=== PATIENT | male | born 1955 | race Caucasian/White ===

== ENCOUNTER → 2023-01-14 15:58 | Outpatient (CLI) | payer OTHER, SELFPAY ==
[2023-01-14 16:03] LABS: Basophils # 0.1 K/mm3 (0-0.2); Basophils % 1.2 % (0.1-2.0); Eosinophils # 0.1 K/mm3 (0.0-0.4); Eosinophils % 1.2 % (0.1-12.0); Hematocrit 45.8 % (42.0-52.0); Hemoglobin 14.8 g/dL (14.1-18.0); Lymphocytes # 2.3 K/mm3 (0.7-4.5); Lymphocytes % 25.2 % (10-50); Mean Corpuscular HGB Conc 32.2 g/dL (31.8-35.4); Mean Corpuscular Hemoglobin 29.1 pg (27.0-31.2); Mean Corpuscular Volume 90.3 fl (80-94); Mean Platelet Volume 8.7 fl (7.4-10.4); Monocytes # 0.6 K/mm3 (0.1-1.0); Monocytes % 6.3 % (1.7-9.3); Neutrophils # 5.9 K/mm3 (1.8-7.8); Neutrophils % 66.1 % (37.0-80.0); Platelet Count 256 K/mm3 (142-424); Red Blood Count 5.07 M/mm3 (4.60-6.20); Red Cell Distribution Width 14.1 % (11.5-17.5); White Blood Count 8.9 K/mm3 (4.8-10.8)
[2023-01-14 16:07] LABS: Alanine Aminotransferase 14 U/L (12-78); Albumin Level 4.7 g/dl (3.5-5.0); Albumin/Globulin Ratio 1.8 (1.1-1.8); Alkaline Phosphatase 58 U/L (38-126); Aspartate Amino Transferase 27 U/L (17-59); Bilirubin,Total 0.4 mg/dl (0.2-1.3); Blood Urea Nitrogen 15 mg/dl (9-20); Calcium 9.1 mg/dl (8.4-10.2); Carbon Dioxide 27 mmol/L (22.0-30.0); Chloride 109 mmol/L (98-107); Estimated Glomerular Filt Rate 97 ml/min (>60); GFR (African American) 117 ML/MIN (>60); Globulin 2.6 g/dL (1.3-3.2); Glucose 104 mg/dl (74-100); Sodium 140 mmol/L (136-145); Total Protein,Serum 7.3 g/dl (6.3-8.2)
[2023-01-14 16:40] LABS: Prostate Specific Ag Screen 0.9 ng/ml (0.0-4.0); Thyroid Stimulating Hormone 3.47 uIU/mL (0.465-4.68)
== END ==
PROVIDERS: PCP Family Medicine; Visit Provider Family Medicine
DX: R53.83 Other fatigue (principal); I10 Essential (primary) hypertension; Z12.5 Encounter for screening for malignant neoplasm of prostate
CPT/HCPCS: 80053; 84443; 85025; G0103

== ENCOUNTER 2023-02-06 07:45 | Day surgery (SDC) | payer MEDICARE, OTHER, SELFPAY ==
[2023-01-16 13:09] VITALS: BMI 18.7
--- NOTE | 2023-02-04 12:56 | SUR.PREOP ---
I returned patients phone call he had questions reguarding his ASA 81mg. 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 I informed Mr lozoya that he did not have to stop taking any of his medications. He should continue them. Asa 81mg is fine to continue. I'm not sure why he thought he had to stop ASA.
[2023-02-06] VITALS (7 sets, daily range): BP systolic 93–149; BP diastolic 49–71; PULSE 61–84; RESP 16–18; TEMP 36.5–36.8; O2SAT 95–100
--- NOTE | 2023-02-06 09:13 | EXP.ANES.CKL ---
[facility] Disclaimer: The information contained in this section may have been updated after the patient was seen, as this information can be updated by other users. Medical History Hyperlipidemia Surgical History History of heart bypass surgery History of tonsillectomy No significant past surgical history Family History Other Alcoholism Cancer Coronary artery disease FHx: mental illness Heart attack Hyperlipidemia Hypertension Substance abuse Social History Smoking Status: Light tobacco smoker tobacco type: pipe years: 15 alcohol intake: former year quit: 34 substance use type: former substance user current occupational status: disabled Travel in the last 8 weeks: None household members: none housing: house lives independently: Yes marital status: single education level: college caffeine: Yes special sangeetha needs: No agree to transfusion: No do you feel safe at home: Yes victim of physical abuse: No victim of emotional abuse: No victim of sexual abuse: No would you like helpful sources: No [facility] Anesthesia Checklist Patient Identification Patient Identification: Arm Band and Verbal (Name & ) Structural Data Admitted From: Home Planned Operative Procedure/s: EGD/Colonoscopy Consent for Planned Operative Procedure(s) Verified: Yes Verified Documents: Surgical Consent NPO Status Verified Time NPO: 03:00 Airway Assessment C-Spine Mobility Assessed: Yes TMJ Mobility Assessed: Yes Dentition: Edentulous Neurological Assessment Level of Consciousness: Awake, Alert and Appropriate Anesthesia Plan Anesthesia Risk discussed: Yes ASA Class: III Anesthesia Type: MAC
--- NOTE | 2023-02-06 09:24 | HMH.SCOPE ---
Procedure: Date: 02/06/23 Patient Date of :: 1955 Procedure Performed:: EGD & Biopsies Indications:: Weight loss, bloating Performing Provider:: Александр Peña MD Referring Provider:: Toney Gonzales Sedation:: Propofol Procedure:: The gastroscope was gently passed through the incisoral orifice into the oral cavity and under direct visualization the esophagus was intubated. The endoscope was passed down the esophagus, through the stomach, and into the duodenum. Color, texture, mucosa, and anatomy of the esophagus, stomach, and duodenum were carefully examined with the scope. Findings:: Oropharynx: normal Esophagus: normal EG Junction: intact at 40 cm Cardia: normal Fundus: normal Body: moderate gastritis, no obvious ulcers, biopsied Antrum: normal Duodenal bulb: Erosive duodenitis, biopsied Duodenum (second and third portion): normal Impression: Gastritis and erosive duodenitis Specimens:: Gastric and duodenal Recommendations:: Avoid NSAIDs & ASA products Complications:: None Estimated blood obtained (mL): 0
--- NOTE | 2023-02-06 09:27 | HMH.SCOPE ---
Procedure: Date: 02/06/23 Patient Date of :: 1955 Procedure Performed:: Screening colonoscopy Indications:: Family history of colon cancer (Mother) Performing Provider:: Александр Peña MD Referring Provider:: Toney Gonzales Sedation:: Propofol Procedure:: After placing the patient in the left lateral decubitus position, the colonoscopy was gently inserted into the rectum and under direct visualization advanced to the cecum which was identified by transillumination in the right lower quadrant, identification of the ileocecal valve, appendiceal orifice, and cecal strap. Color, texture, mucosa, and anatomy of the colon were carefully examined with the scope. Findings:: Anal canal: normal Rectum: normal Sigmoid colon: normal without polyps or inflammatory changes, few diverticuli Descending colon: normal without polyps or inflammatory changes Splenic flexure: normal Transverse colon: normal without polyps or inflammatory changes Hepatic flexure: normal Ascending colon: normal without polyps or inflammatory changes Cecum: normal Terminal ileum: not visualized Impression: Few sigmoid diverticulosis otherwise normal colonoscopy Recommendations:: Follow up exam in about FIVE years or so in view of family history Complications:: None Estimated blood obtained (mL): 0
== END 2023-02-06 10:14 | disposition home or self-care (01) ==
PROVIDERS: PCP Family Medicine; Visit Provider Internal Medicine Gastroenterology
PROC: 0DJ08ZZ Inspection of Upper Intestinal Tract, Via Natural or Artificial Opening Endoscopic (ICD-10-PCS; CPT 43235; principal; 2023-02-06 09:00)
DX: K29.80 Duodenitis without bleeding (principal); K29.70 Gastritis, unspecified, without bleeding; Z80.0 Family history of malignant neoplasm of digestive organs; Z72.0 Tobacco use; K57.30 Diverticulosis of large intestine without perforation or abscess without bleeding; R14.0 Abdominal distension (gaseous); R63.4 Abnormal weight loss; Z79.899 Other long term (current) drug therapy
CPT/HCPCS: 43239; 45378; 88305

== ENCOUNTER → 2023-03-14 14:58 | Outpatient (CLI) | payer MEDICARE, OTHER, SELFPAY ==
[2023-03-14 15:03] LABS: MANUAL DIFFERENTIAL MANUAL DIFFERENTIAL (MANUAL DIFF)
[2023-03-14 15:54] LABS: Basophils # 0.1 K/mm3 (0-0.2); Eosinophils # 0.1 K/mm3 (0.0-0.4); Eosinophils % 1.5 % (0.1-12.0); Hematocrit 45.4 % (42.0-52.0); Hemoglobin 14.5 g/dL (14.1-18.0); Lymphocytes # 2.5 K/mm3 (0.7-4.5); Lymphocytes % 31.4 % (10-50); Mean Corpuscular HGB Conc 31.9 g/dL (31.8-35.4); Mean Corpuscular Hemoglobin 28.4 pg (27.0-31.2); Mean Corpuscular Volume 88.9 fl (80-94); Mean Platelet Volume 8.2 fl (7.4-10.4); Monocytes # 0.5 K/mm3 (0.1-1.0); Monocytes % 5.8 % (1.7-9.3); Neutrophils # 4.8 K/mm3 (1.8-7.8); Neutrophils % 60.3 % (37.0-80.0); Platelet Count 214 K/mm3 (142-424); Red Cell Distribution Width 13.6 % (11.5-17.5)
[2023-03-14 16:03] LABS: Monoscreen (Rapid) Negative (Negative)
[2023-03-14 16:13] LABS: Alanine Aminotransferase 12 U/L (12-78); Albumin Level 4.3 g/dl (3.5-5.0); Albumin/Globulin Ratio 1.8 (1.1-1.8); Alkaline Phosphatase 49 U/L (38-126); Anion Gap 13.5 mEq/L (5-15); Aspartate Amino Transferase 25 U/L (17-59); Bilirubin,Total 0.6 mg/dl (0.2-1.3); Blood Urea Nitrogen 16 mg/dl (9-20); Calcium 9.3 mg/dl (8.4-10.2); Carbon Dioxide 27 mmol/L (22.0-30.0); Chloride 105 mmol/L (98-107); Chol/HDL Ratio 3.7 (1-3.5); Cholesterol 128 mg/dl (140-200); Estimated Glomerular Filt Rate 97 ml/min (>60); GFR (African American) 117 ML/MIN (>60); Globulin 2.4 g/dL (1.3-3.2); Glucose 96 mg/dl (74-100); HDL Cholesterol 35 mg/dl (40-60); Potassium 4.5 mmoL/L (3.5-5.1); Sodium 141 mmol/L (136-145); Total Protein,Serum 6.7 g/dl (6.3-8.2); Triglycerides 70 mg/dl (30-150); VLDL Cholesterol 14 mg/dL (0-40)
[2023-03-14 16:24] LABS: Direct LDL Cholesterol 81.75 mg/dL (100-129)
[2023-03-14 16:31] LABS: 25-OH Vitamin D, Total 15.6 ng/mL (30-100)
[2023-03-14 16:44] LABS: Thyroid Stimulating Hormone 2.47 uIU/mL (0.465-4.68)
[2023-03-14 17:03] LABS: Vitamin B12 366 pg/mL (239-931)
[2023-03-14 18:56] LABS: Lymphocytes % 30 % (10-50); Monocytes % 2 % (2-9); Neutrophils % 68 % (42-76); Total Cells Counted 100
[2023-03-14 18:57] LABS: Platelet Estimate Normal; RBC Morphology Normal
[2023-03-16 18:24] LABS: Testosterone,Total 563 ng/dL (264-916)
[2023-03-17 17:26] LABS: EBV Ab VCA, IgG >600.0 U/mL (0.0-17.9); EBV Ab VCA, IgM <36.0 U/mL (0.0-35.9); EBV Nuclear Antigen Ab, IgG 38.8 U/mL (0.0-17.9)
== END ==
PROVIDERS: PCP Family Medicine; Visit Provider Family Medicine
DX: E78.5 Hyperlipidemia, unspecified (principal); E55.9 Vitamin D deficiency, unspecified; Z79.899 Other long term (current) drug therapy; R10.9 Unspecified abdominal pain
CPT/HCPCS: 36415; 80053; 80061; 82306; 82607; 84403; 84443; 85007; 85014; 85018; 85048; 85049; 86318; 86664; 86665

== ENCOUNTER → 2023-04-03 10:07 | Outpatient (CLI) | payer MEDICARE, OTHER, SELFPAY ==
--- NOTE | 2023-04-03 10:08 | CT_ITS ---
FINAL REPORT CLINICAL HISTORY: lung cancer screening 1 pack per day x 16 years smoker FINDINGS: Axial images were obtained from the lung apex to the mid abdomen by computed tomography. Low-dose protocol was utilized. CTDl vol(mGy): 2.90 DLP (mGy-cm): 115.42 FINDINGS: There is no axillary adenopathy. There is no hilar or mediastinal adenopathy. The heart size is normal. There is no pericardial or pleural effusion. Limited images of the upper abdomen are unremarkable. Lung window images demonstrate a subpleural nodule within the left upper lobe measuring 6 mm in seen on image 61. There are 2 nodules along the mid left major fissure measuring 6 mm or less. These likely represent intra fissural lymph nodes. A 7 mm subpleural right mid lung nodule is seen on image 62. There is a 5 mm medial right upper lobe nodule on image 28. Moderate emphysema is noted. IMPRESSION: Scattered lung nodules are favored to represent granulomas. Lung RADS category 3. Recommend 6 month follow-up low-dose chest CT. Reviewed, Interpreted and Dictated by Fahad Ma MD Transcribed by Yessenia Lopes Authenticated and [facility]
--- NOTE | 2023-04-03 10:17 | CT_ITS ---
FINAL REPORT TECHNIQUE: Axial CT images of the abdomen were obtained without contrast. Coronal reformatted images were also obtained.This study was performed with techniques to keep radiation doses as low as reasonably achievable (ALARA). Individualized dose reduction techniques using automated exposure control or adjustment of mA and/or kV according to the patient''s size were employed. CLINICAL HISTORY: abdominal pain and weight loss COMPARISON: None FINDINGS: The lung bases are clear. The liver has an unremarkable appearance, without evidence of mass. The gallbladder appears normal without evidence of gallstones. There is no evidence of biliary ductal dilatation. The pancreas appears normal. The spleen size is within normal limits. There is no evidence of renal stone or hydronephrosis. There is no evidence of adenopathy. No abnormal fluid collection is seen. No localized inflammatory processes identified. Bowel is unremarkable. There is moderate calcified plaque in the aorta and iliac vessels. IMPRESSION: No acute findings, mass, or adenopathy. Reviewed, Interpreted and Dictated by Fahad Ma MD Transcribed by Hyacinth Smith Authenticated and . [facility]
== END ==
PROVIDERS: PCP Family Medicine; Visit Provider Family Medicine
DX: R10.9 Unspecified abdominal pain; R63.4 Abnormal weight loss; Z87.891 Personal history of nicotine dependence; Z12.2 Encounter for screening for malignant neoplasm of respiratory organs; Z68.1 Body mass index [BMI] 19.9 or less, adult
CPT/HCPCS: 71271; 74150

== ENCOUNTER 2024-05-26 11:16 | Outpatient (CLI) | payer MEDICARE, OTHER, SELFPAY ==
[2024-05-26 20:44] LABS: Alanine Aminotransferase 9 U/L (12-78); Albumin Level 4.3 g/dl (3.5-5.0); Albumin/Globulin Ratio 1.5 (1.1-1.8); Alkaline Phosphatase 61 U/L (38-126); Anion Gap 15.5 mEq/L (5-15); Aspartate Amino Transferase 23 U/L (17-59); Bilirubin,Total 0.5 mg/dl (0.2-1.3); Blood Urea Nitrogen 19 mg/dl (9-20); Calcium 9.5 mg/dl (8.4-10.2); Carbon Dioxide 27 mmol/L (22.0-30.0); Chloride 104 mmol/L (98-107); Chol/HDL Ratio 4.4 (1-3.5); Cholesterol 145 mg/dl (140-200); Estimated Glomerular Filt Rate 84 ml/min (>60); GFR (African American) 102 ML/MIN (>60); Globulin 2.8 g/dL (1.3-3.2); Glucose 101 mg/dl (74-100); HDL Cholesterol 33 mg/dl (40-60); Potassium 4.5 mmoL/L (3.5-5.1); Sodium 142 mmol/L (136-145); Total Protein,Serum 7.1 g/dl (6.3-8.2); Triglycerides 115 mg/dl (30-150); VLDL Cholesterol 23 mg/dL (0-40)
[2024-05-26 20:46] LABS: Basophils # 0.1 K/mm3 (0-0.2); Basophils % 1.1 % (0.1-2.0); Eosinophils # 0.2 K/mm3 (0.0-0.4); Eosinophils % 1.6 % (0.1-12.0); Hematocrit 44.9 % (42.0-52.0); Hemoglobin 14.7 g/dL (14.1-18.0); Lymphocytes # 1.8 K/mm3 (0.7-4.5); Lymphocytes % 17.6 % (10-50); Mean Corpuscular HGB Conc 32.7 g/dL (31.8-35.4); Mean Corpuscular Hemoglobin 29.5 pg (27.0-31.2); Mean Corpuscular Volume 90.3 fl (80-94); Mean Platelet Volume 9.8 fl (7.4-10.4); Monocytes # 0.6 K/mm3 (0.1-1.0); Neutrophils # 7.3 K/mm3 (1.8-7.8); Neutrophils % 73.8 % (37.0-80.0); Platelet Count 189 K/mm3 (142-424); Red Blood Count 4.97 M/mm3 (4.60-6.20); Red Cell Distribution Width 14.4 % (11.5-17.5)
[2024-05-26 20:55] LABS: Direct LDL Cholesterol 87.76 mg/dL (100-129)
[2024-05-26 21:15] LABS: Prostate Specific Ag Screen 1.1 ng/ml (0.0-4.0); Thyroid Stimulating Hormone 3.96 uIU/mL (0.465-4.68)
[2024-05-28 10:59] LABS: Testosterone,Total 600 ng/dL (264-916)
== END 2024-05-26 23:59 | disposition home or self-care (01) ==
LOC: LAB.DROPOF 05-27 11:16
PROVIDERS: PCP Family Medicine; Visit Provider Family Medicine
DX: E78.5 Hyperlipidemia, unspecified (principal); Z12.5 Encounter for screening for malignant neoplasm of prostate
CPT/HCPCS: 80050; 80053; 80061; 84403; 84443; 85025; G0103

== ENCOUNTER 2025-05-26 12:18 | Outpatient (CLI) | payer MEDICARE, OTHER, SELFPAY ==
[2025-05-26 18:49] LABS: Hematocrit 43.7 % (42.0-52.0); Hemoglobin 13.3 g/dL (14.1-18.0); Immature Granulocytes % 0.2 %; Mean Corpuscular HGB Conc 30.4 g/dL (31.8-35.4); Mean Corpuscular Hemoglobin 27.8 pg (27.0-31.2); Mean Corpuscular Volume 91.2 fl (80-94); Nucleated Red Blood Cells % 0 %; Platelet Count 183 K/mm3 (142-424); Red Blood Count 4.79 M/mm3 (4.60-6.20); Red Cell Distribution Width-SD 49.4 fL; White Blood Count 8.1 K/mm3 (4.8-10.8)
[2025-05-26 19:36] LABS: Alanine Aminotransferase 10 U/L (12-78); Albumin Level 4.1 g/dl (3.5-5.0); Albumin/Globulin Ratio 1.7 (1.1-1.8); Alkaline Phosphatase 68 U/L (38-126); Anion Gap 12.1 mEq/L (5-15); Aspartate Amino Transferase 22 U/L (17-59); Bilirubin,Total 0.4 mg/dl (0.2-1.3); Blood Urea Nitrogen 12 mg/dl (9-20); Calcium 9.0 mg/dl (8.4-10.2); Carbon Dioxide 27 mmol/L (22.0-30.0); Chloride 105 mmol/L (98-107); Cholesterol 143 mg/dl (140-200); Creatinine,Serum 0.70 mg/dl (0.66-1.25); Estimated Glomerular Filt Rate 112 ml/min (>60); GFR (African American) 136 ML/MIN (>60); Globulin 2.4 g/dL (1.3-3.2); Glucose 72 mg/dl (74-100); HDL Cholesterol 30 mg/dl (40-60); Potassium 4.1 mmoL/L (3.5-5.1); Sodium 140 mmol/L (136-145); Total Protein,Serum 6.5 g/dl (6.3-8.2); Triglycerides 98 mg/dl (30-150)
[2025-05-26 20:26] LABS: Hepatitis C Ab Qual. W/ RFX NEGATIVE (Negative)
--- OUTSIDE RECORDS SUMMARY | 2025-05-30 12:40 | XMS_ITS | Encounter Summary ---
Author Organization [employer] ([place], [place], [place], [place]) Address [address] [place] [address] Care Team Providers Care Payroll Representative Name Role Phone Unavailable Primary Care Provider Unavailabl e Encounter Details Date Type Department Care Team (Late st Contact Info) Description 08/07/2020 Transcribed Document [facility] [address] [place] [address] Provider, Sabra Lujan MD Social History Tobacco Use Types Packs/Day Years Used Date Smoking Tobacco: Never Assessed Sex and Gender Information Value Date Recorded Sex Assigned at Not on file Legal Sex Male 7:05 PM CDT Gender Identity Not on file Sexual Orientation Not on file documented as of this encounter Miscellaneous Notes * Cerner Conversion Note - [facility] Tai ProviderMD - 08/07/2020 8:55 AM EDT Pre Procedure Adult Entered On: 08/07/2020 8:01 EDT Performed On: 08/07/2020 7:55 EDT by FREIDA SONG RN Height and Weight, Clinical Dosing Height Source : Measured Height Entry Format : [place] Height, Feet : 6 ft(Converted to: 183 cm, 72 Inch) Height, Inches : 0 Inch(Converted to: 0 ft 0 Inch, 0.00 cm) Clinical Height : 182.88 cm Weight Source : Standing scale Weight Entry Format : [place] Clinical Dosing Weight : 71.36 kg Weight, Pounds : 157 lb Body Surface Area (BSA) : 1.92 m2 Body Mass Index : 21.3 kg/m2 [place] Body Weight : 77 kg FREIDA SONG RN - 08/07/2020 7:55 EDT Health Histories Smoking Status : Cigars or pipes daily within last 30 days Smokeless Tobacco Status : Never Desires Tobacco Cessation Medication : No Reason for No Tobacco Cessation Medication : Refuses FDA approved medications FREIDA SONG RN - 08/07/2020 7:55 EDT Social History (As Of: 08/07/2020 08:01:55 EDT) Infectious Disease History Has the patient ever been tested for COVID-19? : Yes, Patient stated results Negative Where was the COVID-19 Testing completed? : [facility] Where are the test results? : Paper Copy on chart Date of COVID-19 test known? : No Does patient have symptoms of COVID-19? : No COVID19 Screening : No Experiencing Infectious Disease Symptoms : No symptoms Physical contact outside [place] in the last 30 days : No Infectious Disease History : Influenza, Measles Tuberculosis Symptoms : None FREIDA SONG RN - 08/07/2020 7:55 EDT COVID19 PreProcedure Screening Is this an Emergent or Add on Procedure? : No Has patient been isolated since the test : No Exposed to COVID19 symptoms since test? : No FREIDA SONG RN - 08/07/2020 7:55 EDT Anesthesia/Transfusion History Family History of Anesthesia Reaction : No prior transfusion(s) Blood Transfusion Acceptable to Patient : Yes Transfusion History : No prior anesthesia Family History of Anesthesia Reaction : None FREIDA SONG RN - 08/07/2020 7:55 EDT Functional Assessment Living Situation : Home Patient Lives With : Alone Current Home Treatments : None FREIDA SONG RN - 08/07/2020 7:55 EDT [place] Suicide Severity Rating Scale (C-SSRS) CSSRS Past Month Wish to be : No CSSRS Past Month Suicidal Thoughts : No CSSRS Lifetime Suicide Behavior : No Suicide Severity Rating Score : 0 Suicide Severity Rating : No Additional Care Required at this time FREIDA SONG RN - 08/07/2020 7:55 EDT Psychosocial History Currently in Unsafe Situation : No FREIDA SONG RN - 08/07/2020 7:55 EDT Advance Directive Patient has Advance Directive *Q : No, patient refuses Advance Directive information FREIDA SONG RN - 08/07/2020 7:55 EDT General Info Want Family/Rep/Phys Notified of Admit : No Emergency Contact #1 : Jesus Emergency Contact #1 Phone Number : friend Emergency Contact #1 Relationship : [phone] Emergency Contact #2 : none Emergency Contact #2 Phone Number : none Emergency Contact #2 Relationship : none Primary Language : Vietnamese Communication Barrier : None Safety Net Maker Needed : No FREIDA SONG RN - 08/07/2020 7:55 EDT Sleep Apnea Risk Assmt Hx of Obstructive Sleep Apnea Diagnosis : No Snore Loudly : No Tired, Fatigued, or Sleepy During Day : No Observed Stopping Breathing During Sleep : No Have/Are Being Treated for Hypertension : No BMI Greater Than 35 kg/m2 : No Age over 50 Years Old : Yes Neck Circumference Greater Than 40 cm : No Gender Male : Yes STOP-BANG Sleep Apnea Risk Level Score : 2 FREIDA SONG RN - 08/07/2020 7:55 EDT Hector Scale Hector Sensory Perception : No impairment Hector Moisture : Rarely moist Hector Activity : Walks frequently Hector Mobility : No limitation Hector Nutrition : Adequate Hector Friction and Shear : No apparent problem Hector Score : 22 FREIDA SONG RN - 08/07/2020 7:55 EDT Fall Risk Scales ABCs Fall Injury Risk Identification : None SHARIF Hx Falls Immediate/Within 3 Months : No Sharif Secondary Diagnosis : No SHARIF Use of Ambulatory Aid : None SHARIF IV Therapy or IV Access : No Sharif Gait/Transferring : Normal, bedrest, immobile Sharif Mental Status : Oriented to own ability Sharif Fall Risk Score : 0 SHARIF Fall Scale Risk Level : 0-24 Low Risk [place] Fall Interventions : Adequate lighting, Assistive devices within reach, Bed in low position, Call device within reach, Fall prevention handout/education per facility policy, Hourly comfort/safety rounds, Non-slip footwear, Personal items within reach, Reinforced to call for assistance before getting out of bed, Room free of clutter/spills, Upper side-rails up, Wheels locked, Wires/Cords secured FREIDA SONG RN - 08/07/2020 7:55 EDT Valuables and Belongings Valuables and Belongings : Clothing Clothing : Common streetwear Clothing Disposition : Bedside FREIDA SONG RN - 08/07/2020 7:55 EDT documented in this encounter Plan of Treatment Not on file documented as of this encounter Visit Diagnoses Not on filedocumented in this encounter
--- OUTSIDE RECORDS SUMMARY | 2025-05-30 12:40 | XMS_ITS | Encounter Summary ---
Author Organization [employer] ([place], [place], [place], [place]) Address [address] [place] [address] Care Team Providers Care Pneumatic Tube Operator Name Role Phone Unavailable Primary Care Provider Unavailabl e Encounter Details Date Type Department Care Team (Late st Contact Info) Description 08/07/2020 Transcribed Document [facility] Radiology [address] [place] [address] Provider, Sabra Lujan MD Social History Tobacco Use Types Packs/Day Years Used Date Smoking Tobacco: Never Assessed Sex and Gender Information Value Date Recorded Sex Assigned at Not on file Legal Sex Male 7:05 PM CDT Gender Identity Not on file Sexual Orientation Not on file documented as of this encounter Miscellaneous Notes * Cerner Conversion Note - [facility] Tai ProviderMD - 08/07/2020 3:59 PM EDT Stroke/Warfarin Instructions Entered On: 08/07/2020 14:59 EDT Performed On: 08/07/2020 14:59 EDT by FREIDA SONG RN Stroke/Warfarin Instructions Stroke/TIA Discharge Ins : Open Warfarin Discharge Ins : N/A FREIDA SONG RN - 08/07/2020 14:59 EDT Stroke/TIA Discharge Instructions Individualized Stroke Risk Factors *Q : High cholesterol, Peripheral vascular disease, Smoking Stroke Education Handouts Given *Q : Yes FREIDA SONG RN - 08/07/2020 14:59 EDT Stroke Education Materials Given-Grid Activation of EMS *Q : Verbalizes understanding Follow-up Care After Discharge *Q : Verbalizes understanding Medications prescribed at DC *Q : Verbalizes understanding Risk Factors for Stroke *Q : Verbalizes understanding Warning S&S of Stroke *Q : Verbalizes understanding FREIDA SONG RN - 08/07/2020 14:59 EDT Stroke/TIA Signs/Symptoms to Report Immediately : Sudden onset difficulty speaking, Sudden onset difficulty understanding speech, Sudden onset change in vision, Sudden onset weakness particulary on one side of the body, Sudden onset numbness/tingling, Sudden severe headache, Sudden dizziness or trouble with gait, Call : EMS activation is crucial My LDL Level: : LDL Level No qualifying data available. FREIDA SONG RN - 08/07/2020 14:59 EDT documented in this encounter Plan of Treatment Not on file documented as of this encounter Visit Diagnoses Not on filedocumented in this encounter
--- OUTSIDE RECORDS SUMMARY | 2025-05-30 12:40 | XMS_ITS | Encounter Summary ---
Author Organization [employer] ([place], [place], [place], [place]) Address [address] [place] [address] Care Team Providers Care Inspector Assemblies And Installations Name Role Phone Unavailable Primary Care Provider Unavailabl e Encounter Details Date Type Department Care Team (Late st Contact Info) Description 08/07/2020 Transcribed Document [facility] [address] [place] [address] Provider, Sabra Lujan MD Social History Tobacco Use Types Packs/Day Years Used Date Smoking Tobacco: Never Assessed Sex and Gender Information Value Date Recorded Sex Assigned at Not on file Legal Sex Male 7:05 PM CDT Gender Identity Not on file Sexual Orientation Not on file documented as of this encounter Miscellaneous Notes * Cerner Conversion Note - [facility] Tai Bennett MD - 08/07/2020 2:35 PM EDT Patient Education Materials Follows: Valvuloplasty, Care After This sheet gives you information about how to care for yourself after your procedure. Your health care provider may also give you more specific instructions. If you have problems or questions, contact your health care provider. What can I expect after the procedure? After the procedure, it is common to have: EA tender lump and bruising in your groin. ESoreness. Follow these instructions at home: Incision care EFollow instructions from your health care provider about how to take care of your incision. Make sure you: ? Wash your hands with soap and water before you change your bandage (dressing). If soap and water are not available, use hand senior java architect. ? Change your dressing as told by your health care provider. ? Leave stitches (sutures), skin glue, or adhesive strips in place. These skin closures may need to stay in place for 2 weeks or longer. If adhesive strip edges start to loosen and curl up, you may trim the loose edges. Do not remove adhesive strips completely unless your health care provider tells you to do that. ECheck your incision area every day for signs of infection. Check for: ? More redness, swelling, or pain. ? More fluid or blood. ? Warmth. ? Pus or a bad smell. Robbie not apply powder or lotion to the area. Driving Robbie not drive until your health care provider approves. Robbie not drive or use heavy machinery while taking prescription pain medicine. Activity EReturn to your normal activities as told by your health care provider. Ask your health care provider what activities are safe for you. Robbie not lift anything that is heavier than 10 lb (4.5 kg) until your health care provider says it is safe. Lifestyle ELimit alcohol intake to no more than 1 drink a day for non women and 2 drinks a day for men. One drink equals 12 oz of beer, 5 oz of wine, or 1? oz of hard liquor. Robbie not use any products that contain nicotine or tobacco, such as cigarettes and e-cigarettes. If you need help quitting, ask your health care provider. General instructions ETake cxtn-hfr-rhqgwrt and prescription medicines only as told by your health care provider. Robbie not take baths, swim, or use a hot tub until your health care provider approves. ETo prevent or treat constipation while you are taking prescription pain medicine, your health care provider may recommend that you: ? Drink enough fluid to keep your urine clear or pale yellow. ? Take aiox-kdw-smesgwm or prescription medicines. ? Eat foods that are high in fiber, such as fresh fruits and vegetables, whole grains, and beans. ? Limit foods that are high in fat and processed sugars, such as fried and sweet foods. EFollow instructions from your health care provider about eating or drinking restrictions. EWear compression stockings as told by your health care provider. These stockings help to prevent blood clots and reduce swelling in your legs. EKeep all follow-up visits as told by your health care provider. This is important. Contact a health care provider if: EYou have a fever or chills. EYou have more redness, swelling, or pain around your incision. EYou have more fluid or blood coming from your incision. EYour incision feels warm to the touch. EYou have pus or a bad smell coming from your incision. EYou have nausea or you feel dizzy. EYou have swelling or pain in your leg. Get help right away if: EYou develop bleeding from your incision that does not stop. EYou have chest pain. EYou have difficulty breathing. This information is not intended to replace advice given to you by your health care provider. Make sure you discuss any questions you have with your health care provider. Document Released: 03/26/2016 Document Revised: 10/23/2018 Document Reviewed: 10/07/2017 [employer] Patient Education ? 2020 [employer]. Groin Site Care Refer to this sheet in the next few weeks. These instructions provide you with information on caring for yourself after your procedure. Your caregiver may also give you more specific instructions. Your treatment has been planned according to current medical practices, but problems sometimes occur. Call your caregiver if you have any problems or questions after your procedure. HOME CARE INSTRUCTIONS ? You may shower 24 hours after the procedure. Remove the bandage (dressing ) and gently wash the site with plain soap and water. Gently pat the site dry. ? Do not apply powder or lotion to the site. ? Do not sit in a bathtub, swimming pool, or whirlpool for 5 to 7 days. ? No bending, squatting, or lifting anything over 10 pounds (4.5 kg) as directed by your caregiver. ? Inspect the site at least twice daily. ? Do not drive home if you are discharged the same day of the procedure. Have someone else drive you. ? You may drive 24 hours after the procedure unless otherwise instructed by your caregiver. What to expect: ? Any bruising will usually fade within 1 to 2 weeks. ? Blood that collects in the tissue (hematoma ) may be painful to the touch. It should usually decrease in size and tenderness within 1 to 2 weeks. SEEK IMMEDIATE MEDICAL CARE IF: ? You have unusual pain at the groin site or down the affected leg. ? You have redness, warmth, swelling, or pain at the groin site. ? You have drainage (other than a small amount of blood on the dressing). ? You have chills. ? You have a fever or persistent symptoms for more than 72 hours. ? You have a fever and your symptoms suddenly get worse. ? Your leg becomes pale, cool, tingly, or numb. ? You have heavy bleeding from the site. Hold pressure on the site. Document Released: 12/13/2011 Document Revised: 02/01/2013 Document Reviewed: 12/13/2011 [employer]Care? Patient Information ?2013 [employer]. Moderate Conscious Sedation, Adult, Care After These instructions provide you with information about caring for yourself after your procedure. Your health care provider may also give you more specific instructions. Your treatment has been planned according to current medical practices, but problems sometimes occur. Call your health care provider if you have any problems or questions after your procedure. What can I expect after the procedure? After your procedure, it is common: ETo feel sleepy for several hours. ETo feel clumsy and have poor balance for several hours. ETo have poor judgment for several hours. ETo vomit if you eat too soon. Follow these instructions at home: For at least 24 hours after the procedure: Robbie not: ? Participate in activities where you could fall or become injured. ? Drive. ? Use heavy machinery. ? Drink alcohol. ? Take sleeping pills or medicines that cause drowsiness. ? Make important decisions or sign legal documents. ? Take care of children on your own. ERest. Eating and drinking EFollow the diet recommended by your health care provider. EIf you vomit: ? Drink water, juice, or soup when you can drink without vomiting. ? Make sure you have little or no nausea before eating solid foods. General instructions EHave a responsible adult stay with you until you are awake and alert. ETake dire-pqf-wruuhef and prescription medicines only as told by your health care provider. EIf you smoke, do not smoke without supervision. EKeep all follow-up visits as told by your health care provider. This is important. Contact a health care provider if: EYou keep feeling nauseous or you keep vomiting. EYou feel light-headed. EYou develop a rash. EYou have a fever. Get help right away if: EYou have trouble breathing. This information is not intended to replace advice given to you by your health care provider. Make sure you discuss any questions you have with your health care provider. Document Released: 08/31/2014 Document Revised: 10/23/2018 Document Reviewed: 03/01/2017 [employer] Patient Education ? 2019 [employer] Electronically signed by Sabra Manzanares [employer] Customer Service Cerner at 04/16/2023 5:34 PM CDT documented in this encounter Plan of Treatment Not on file documented as of this encounter Visit Diagnoses Not on filedocumented in this encounter
--- OUTSIDE RECORDS SUMMARY | 2025-05-30 12:40 | XMS_ITS | Encounter Summary ---
Author Organization [employer] ([place], [place], [place], [place]) Address [address] [place] [address] Care Team Providers Care Printed Circuit Boards Plasma Etcher Name Role Phone Unavailable Primary Care Provider Unavailabl e Encounter Details Date Type Department Care Team (Late st Contact Info) Description 08/07/2020 Transcribed Document [facility] Radiology [address] [place] [address] ProviderSabra MD Social History Tobacco Use Types Packs/Day Years Used Date Smoking Tobacco: Never Assessed Sex and Gender Information Value Date Recorded Sex Assigned at Not on file Legal Sex Male 7:05 PM CDT Gender Identity Not on file Sexual Orientation Not on file documented as of this encounter Miscellaneous Notes * Cerner Conversion Note - [facility] ProviderMD - 08/07/2020 3:59 PM EDT Nursing Discharge Summary Entered On: 08/07/2020 15:00 EDT Performed On: 08/07/2020 14:59 EDT by FREIDA SONG RN Discharge Documentation Discharge Date/Time : 08/07/2020 14:59 EDT Patient Disposition, General : Discharge Discharge To : Home with ambulatory/outpatient follow-up Mode Of Departure, General Discharge : Private vehicle Accompanied By, Discharge : Friend IV Discontinued : Yes Personal Belongings With Patient : Yes Discharge Instructions Reviewed With, Opportunity For Questions Given : Patient, Friend Patient Education Completed : Yes Teaching Method : Explanation, Printed materials Teaching Evaluation : Returns demonstration, Verbalizes understanding FREIDA SONG RN - 08/07/2020 14:59 EDT documented in this encounter Plan of Treatment Not on file documented as of this encounter Visit Diagnoses Not on filedocumented in this encounter
--- OUTSIDE RECORDS SUMMARY | 2025-05-30 12:40 | XMS_ITS | Clinical Summary ---
Author Organization [facility] ([place], [place], [place], [place]) Address [address] [place] [address] Care Team Providers Care Top Installer Name Role Phone Unavailable Primary Care Provider Unavailabl e Social History Tobacco Use Types Packs/Day Years Used Date Smoking Tobacco: Never Assessed Sex and Gender Information Value Date Recorded Sex Assigned at Not on file Legal Sex Male 7:05 PM CDT Gender Identity Not on file Sexual Orientation Not on file Plan of Treatment Not on file
--- OUTSIDE RECORDS SUMMARY | 2025-05-30 12:40 | XMS_ITS | Referral Summary ---
Author Organization [employer] ([place], [place], [place], [place]) Address [address] [place] [address] Care Team Providers Care Electronic Scale Tester Name Role Phone Unavailable Primary Care Provider [...]
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
--- OUTSIDE RECORDS SUMMARY | 2025-05-30 12:40 | XMS_ITS | Encounter Summary ---
Author Organization [facility] ([place], [place], [place], [place]) Address [address] [place] [address] Care Team Providers Care Drug And Alcohol Counselor Name Role Phone Unavailable Primary Care Provider Unavailabl e Encounter Details Date Type Department Care Team (Late st Contact Info) Description 08/07/2020 Transcribed Document [facility] [address] [place] [address] Provider, [facility] MD Tai Social History Tobacco Use Types Packs/Day Years Used Date Smoking Tobacco: Never Assessed Sex and Gender Information Value Date Recorded Sex Assigned at Not on file Legal Sex Male 7:05 PM CDT Gender Identity Not on file Sexual Orientation Not on file documented as of this encounter Miscellaneous Notes * Cerner Conversion Note - [facility] Tai ProviderMD - 08/07/2020 4:00 PM EDT [facility] [address] [place] [address] ADRIÁN ANN :1955 Visit Time:08/07/2020 Your Visit Summary Your Care Team Admitting Physician - ROSEANNA DURAND MD-CAR Attending Physician - ROSEANNA DURAND MD-COBY Primary Care Physician - [facility] (REF), Referring Physician - ROSEANNA DURAND MD-CAR Your Diagnosis Nonrheumatic aortic (valve) stenosis, Nonrheumatic aortic (valve) stenosis Discharge Vitals Heart Rate (Monitored) 68 Respiratory Rate 13 Blood Pressure 114/59 What to do next Instructions From Your Care Team Diet after Discharge: Heart healthy diet, Do not drink any alcoholic beverages Activity after Discharge: Rest and relax today and tomorrow, Lifting Restrictions: _ Driving after Discharge: Do not drive for 24 hours May Return to Work/School: Showering/Bathing: May shower in 24 hours, No tub bathing, soaking or swimming for 5 days Notify Provider of: any sign of bleeding, hematoma or infection Wound/Incision Care after Discharge: Keep operative site/wound site clean and dry, may remove dressing in 24 hours Discharge Follow Up Instructions: Follow up with Maryann Chavarria APRN in 2-4weeks Follow-Up Appointments Follow Up with MARYANN CHAVARRIA APRN-INT When 09/05/2020 03:15 PM EDT Where: [address] [facility] [address] [place] [id number]- Medications What How Much When Instructions Next Dose aspirin (aspirin 81 mg oral delayed release tablet) 1 Tablet(s) Oral Every Day fenofibrate (fenofibrate 145 mg oral tablet) Oral Every Day niacin (niacin 500 mg oral capsule, extended release) Oral At Bedtime simvastatin (Zocor 40 mg oral tablet) Oral Every Day Please continue all meds as ordered by your physician Take your medications faithfully. Do NOT skip medication. Do NOT stop taking medications without the direction of a physician. Carry a list of your medications with you at all times, and take this medication list with you to your first follow up visit. Report any side effects. Avoid herbal remedies unless discussed with your physician. As part of your treatment plan, your physician may have prescribed a limited course of a controlled substance. This medication may be given to help people with moderate or severe pain or for other medical conditions, but there are risks involved with treatment. Common side effects may include nausea, constipation, drowsiness, sweating, itching, dry mouth, and rash. More serious side effects may include cognitive and motor impairment, like problems with thinking, concentrating, alertness, and movement (e.g. slowed reflexes), and driving and operating heavy machinery can be dangerous. It is important for you to talk to your physician if you have these side effects or questions. These controlled substances can produce physical dependence and be habit-forming if taken for an extended period of time, which means that the body has gotten used to them and may experience withdrawal symptoms if they are abruptly stopped. Withdrawal symptoms can include runny nose, sweating, goose bumps, diarrhea, abdominal cramping, rapid heartbeat, difficulty sleeping, and nervousness. Please dispose of unused and medications per your retail pharmacy guidance. Allergies No Known Allergies Immunizations This Visit No Immunizations Found Stroke/TIA Instructions Individualized Stroke Risk Factors Individualized Stroke Risk Factors *Q: High cholesterol, Peripheral vascular disease, Smoking Stroke/TIA Signs/Symptoms to Report Immediately: Sudden onset difficulty speaking, Sudden onset difficulty understanding speech, Sudden onset change in vision, Sudden onset weakness particulary on one side of the body, Sudden onset numbness/tingling, Sudden severe headache, Sudden dizziness or trouble with gait, Call : EMS activation is crucial Mutually Agreed Upon Goals My LDL Level: My LDL Level: Education Materials Valvuloplasty, Care After This sheet gives you information about how to care for yourself after your procedure. Your health care provider may also give you more specific instructions. If you have problems or questions, contact your health care provider. What can I expect after the procedure? After the procedure, it is common to have: E A tender lump and bruising in your groin. E Soreness. Follow these instructions at home: Incision care E Follow instructions from your health care provider about how to take care of your incision. Make sure you: ? Wash your hands with soap and water before you change your bandage (dressing). If soap and water are not available, use hand broommaking supervisor. ? Change your dressing as told by [...] care provider tells you to do that. E Check your incision area every day for signs of infection. Check for: ? More redness, swelling, or pain. ? More fluid or blood. ? Warmth. ? Pus or a bad smell. E Do not apply powder or lotion to the area. Driving E Do not drive until your health care provider approves. E Do not drive or use heavy machinery while taking prescription pain medicine. Activity E Return to your normal activities as told by your health care provider. Ask your health care provider what activities are safe for you. E Do not lift anything that is heavier than 10 lb (4.5 kg) until your health care provider says it is safe. Lifestyle E Limit alcohol intake to no more than 1 drink a day for non women and 2 drinks a day for men. One drink equals 12 oz of beer, 5 oz of wine, or 1?? oz of hard liquor. E Do not use any products that contain nicotine or tobacco, such as cigarettes and e-cigarettes. If you need help quitting, ask your health care provider. General instructions E Take yyqu-[id number] and prescription medicines only as told by your health care provider. E Do not take baths, swim, or use a hot tub until your health care provider approves. E To prevent or treat constipation while you are taking prescription pain medicine, your health care provider may recommend that you: ? Drink enough fluid to keep your urine clear or pale yellow. ? Take cmbe-mdk-ssnyxnu or prescription medicines. ? Eat foods that are high in fiber, such as fresh fruits and vegetables, whole grains, and beans. ? Limit foods that are high in fat and processed sugars, such as fried and sweet foods. E Follow instructions from your health care provider about eating or drinking restrictions. E Wear compression stockings as told by your health care provider. These stockings help to prevent blood clots and reduce swelling in your legs. E Keep all follow-up visits as told by your health care provider. This is important. Contact a health care provider if: E You have a fever or chills. E You have more redness, swelling, or pain around your incision. E You have more fluid or blood coming from your incision. E Your incision feels warm to the touch. E You have pus or a bad smell coming from your incision. E You have nausea or you feel dizzy. E You have swelling or pain in your leg. Get help right away if: E You develop bleeding from your incision that does not stop. E You have chest pain. E You have difficulty breathing. This information is not intended to replace advice given to you by your health care provider. Make sure you discuss any questions you have with your health care provider. Document Released: 03/26/2016 Document Revised: 10/23/2018 Document Reviewed: 10/07/2017 [employer] Patient Education ?? 2020 [employer] [facility] Care Refer to this sheet in the next few weeks. These instructions provide you with information on caring for yourself after your procedure. Your caregiver may also give you more specific instructions. Your treatment has been planned according to current medical practices, but problems sometimes occur. Call your caregiver if you have any problems or questions after your procedure. HOME CARE INSTRUCTIONS EYou may shower 24 hours after the procedure. Remove the bandage (dressing ) and gently wash the site with plain soap and water. Gently pat the site dry. Robbie not apply powder or lotion to the site. Robbie not sit in a bathtub, swimming pool, or whirlpool for 5 to 7 days. Zhanna bending, squatting, or lifting anything over 10 pounds (4.5 kg) as directed by your caregiver. EInspect the site at least twice daily. Robbie not drive home if you are discharged the same day of the procedure. Have someone else drive you. EYou may drive 24 hours after the procedure unless otherwise instructed by your caregiver. What to expect: EAny bruising will usually fade within 1 to 2 weeks. EBlood that collects in the tissue (hematoma ) may be painful to the touch. It should usually decrease in size and tenderness within 1 to 2 weeks. SEEK IMMEDIATE MEDICAL CARE IF: EYou have unusual pain at the groin site or down the affected leg. EYou have redness, warmth, swelling, or pain at the groin site. EYou have drainage (other than a small amount of blood on the dressing). EYou have chills. EYou have a fever or persistent symptoms for more than 72 hours. EYou have a fever and your symptoms suddenly get worse. EYour leg becomes pale, cool, tingly, or numb. EYou have heavy bleeding from the site. Hold pressure on the site. Document Released: 12/13/2011 Document Revised: 02/01/2013 Document Reviewed: 12/13/2011 ExitCare?? Patient Information ??2013 [employer] Moderate Conscious Sedation, Adult, Care After These [...] procedure? After your procedure, it is common: E To feel sleepy for several hours. E To feel clumsy and have poor balance for several hours. E To have poor judgment for several hours. E To vomit if you eat too soon. Follow these instructions at home: For at least 24 hours after the procedure: E Do not: ? Participate in activities where you could fall or become injured. ? Drive. ? Use heavy machinery. ? Drink alcohol. ? Take sleeping pills or medicines that cause drowsiness. ? Make important decisions or sign legal documents. ? Take care of children on your own. E Rest. Eating and drinking E Follow the diet recommended by your health care provider. E If you vomit: ? Drink water, juice, or soup when you can drink without vomiting. ? Make sure you have little or no nausea before eating solid foods. General instructions E Have a responsible adult stay with you until you are awake and alert. E Take lcmb-eww-udhiegm and prescription medicines only as told by your health care provider. E If you smoke, do not smoke without supervision. E Keep all follow-up visits as told by your health care provider. This is important. Contact a health care provider if: E You keep feeling nauseous or you keep vomiting. E You feel light-headed. E You develop a rash. E You have a fever. Get help right away if: E You have trouble breathing. This information is not intended to replace advice given to you by your health care provider. Make sure you discuss any questions you have with your health care provider. Document Released: 08/31/2014 Document Revised: 10/23/2018 Document Reviewed: 03/01/2017 [employer] Patient Education ?? 2020 [employer] Emergency Awareness and Preventative Care STROKE is an EMERGENCY Every Minute Counts Act FAST and Check for these signs: FACE Does the face look uneven? ARM Does one arm drift down? SPEECH Does their speech sound strange? TIME Call at any sign of stroke Stroke Risk Factors Atrial Fibrillation (irregular heartbeat) Diabetes Family history of stroke Heart Disease Heavy alcohol use High Blood Pressure High Cholesterol Physical inactivity and obesity Smoking Cigarette Smoking The facts are clear, cigarette smoking will shorten your life. Smoking can cause many illnesses along the way. As a healthcare provider, we recommend that you stop smoking. Assistance with quitting is available by contacting 3-499-NWIL-NOW. This is a free resource providing counseling, support, and referral. Or you may contact your personal physician. National Suicide Prevention Lifeline: The National Suicide Prevention Lifeline is a national network of local crisis centers that provides free and confidential emotional support to people in suicidal crisis or emotional distress 24 hours a day, 7 days a week. Don't Wait! Stop a Heart Attack Before it Starts What is a heart attack? A heart attack is damage or to a part of the heart from severely decreased or lack of blood flow to the heart. Over time, arteries can become narrow from the buildup of fat and cholesterol, which is called plaque. The plaque can rupture causing a blood clot to form. When the blood clot forms, the artery can become severely narrowed or completely blocked, causing a heart attack. Heart attack is the leading cause of in the [place]. 85% of muscle damage occurs within the first 2 hours. Delay in the recognition of heart attack symptoms increases the chances of . Know the early symptoms of a heart attack: Nausea Feeling of fullness in chest Jaw Pain Pain that travels down one or both arms Fatigue/being tired Anxiety Back Pain Chest pressure, squeezing, or discomfort Shortness of breath Sweating, or a cold sweat Feeling of impending doom There are unusual signs of a heart attack, too! Women, the elderly, and diabetics may present with atypical symptoms: Fainting/dizziness Weakness Confusion Risk Factors for a Heart Attack Some heart disease risk factors, such as age and family history, cannot be changed. Others, like smoking and lack of exercise, can be changed. Smoking High Cholesterol High Blood Pressure Family History Obesity Age Gender (Males are at higher risk) Lack of Exercise Diabetes Diet Stress Excessive Alcohol Intake If you or someone you know is experiencing the signs and symptoms of a heart attack, DON???T DELAY. Call immediately and seek help. If someone collapses, perform CPR! Do not attempt to drive if you are having symptoms of heart attack. Hands-Only CPR Why Hands-Only CPR? Hands-Only CPR has been shown to be as effective as conventional CPR for cardiac arrests that occur outside of a hospital. Survival depends on immediately receiving CPR from someone nearby. How do you perform Hands-Only CPR? There are two easy steps: Call if you see a teen or adult collapse Push hard and fast in the center of the chest at a beat of 100 beats per minute. Save a life! 4 WAYS TO GET AHEAD OF SEPSIS SEPSIS is a MEDICAL EMERGENCY. Time matters! Infections put you and your family at risk for a life-threatening condition called sepsis. Sepsis is the body's extreme response to an infection. It is life-threatening, and without timely treatment, sepsis can rapidly lead to tissue damage, organ failure, and . Sepsis happens when an infection you already have-in your skin, lungs, urinary tract or somewhere else-triggers a chain reaction throughout your body. 1 PREVENT INFECTIONS Take good care of chronic conditions. Talk to your doctor about getting the recommended vaccines. 2 PRACTICE GOOD HYGIENE Wash your hands frequently. Keep cuts or open sores clean and covered until they are healed. 3 KNOW THE SYMPTOMS Confusion or disorientation Shortness of breath High heart rate Fever, shivering, or feeling very cold Extreme pain or discomfort Clammy or sweaty skin 4 ACT FAST Get medical care IMMEDIATELY if you suspect sepsis or if you have an infection that is not getting better or is getting worse. To learn more about sepsis and how to prevent infections, visit www.cdc.gov/sepsis. Test Results Laboratory or Other Results This Visit (last charted value for your 08/07/2020 visit) Hematology 08/07/2020 7:50 AM Platelet Count: 216 K/uL -- Normal range between ( 163 and 369 ) Patient Name:ADRIÁN ANN I have received and understand this information and was given the opportunity to ask questions. Patient/Venue Manager Name: Patient/Venue Manager Signature: Relationship to Patient: Clinician/Hospital Venue Manager Signature: Date: Electronically signed by [facility], [facility] Conversion Certifed Refrigeration Operator Zoraidaner at 04/16/2023 5:33 PM CDT documented in this encounter Plan of Treatment Not on file documented as of this encounter Visit Diagnoses Not on filedocumented in this encounter
== END 2025-05-26 23:59 | disposition home or self-care (01) ==
LOC: LAB.DROPOF 05-30 12:18
PROVIDERS: PCP Family Medicine; Visit Provider Family Medicine
DX: Z12.5 Encounter for screening for malignant neoplasm of prostate (principal); Z11.59 Encounter for screening for other viral diseases; R10.9 Unspecified abdominal pain; F32.A Depression, unspecified; E78.5 Hyperlipidemia, unspecified
CPT/HCPCS: 80053; 80061; 85025; 86803; 87389; G0103